=== PATIENT | female | born 1995 | race African-American/Black ===

== ENCOUNTER 2023-11-12 00:37 | Day surgery (SDC) | payer OTHER, SELFPAY ==
[2023-11-10 09:26] VITALS: BMI 21.5
--- NOTE | 2023-11-10 09:30 | PC.NURSE ---
Report to the Outpatient Waiting Room, entrance under the green pavilion located off [facility], at time 1300 on date 11/12/23. Planned Procedure Time: 1500. Time changes happen often and if your time is changed the preop area will call you the afternoon before. - You and your visitor will be asked to self-screen and do not enter if you have any COVID symptoms. - A mask is optional within the hospital at this time. Patients may have clear liquids (water, carbonated beverages, clear teas, apple juice) until 3 hours prior to surgery with a maximum of 20 ounces. - No food from midnight until time of surgery Take the following medications with a SIP of water the morning of surgery: NONE DO NOT STOP ANY OF YOUR OTHER PRESCRIPTION MEDICATIONS PRIOR TO SURGERY ?EXCEPT THE FOLLOWING Medications to discontinue per physician: ADVIL Date to take last dose: PER DR. WEST Please no make-up, nail swedish, hairspray, perfume, deodorant, or body powder the day of surgery. No jewelry (including any body piercings) or valuables the day of surgery, leave them at home. Please take a shower or bath the night before, or the morning of, surgery with an antibacterial soap. Wear comfortable, loose fitting clothing. - Jewelry must be removed prior to entering the operating room. Rings and piercings that are not removed may be cut off. - The hospital will not accept responsibility for valuables. - Please leave all valuables, including medications, at home the day of surgery. If you are going home after surgery, a licensed truck driver helper must drive you home. - NO public transportation without another adult if you receive anesthesia. - We recommend that an adult stay with you for 24 hours following discharge. - We also recommend that you do not drive, make important decision, drink alcoholic beverages, or take any drugs that were not prescribed by your health care provider for at least 24 hours after your discharge time. Follow any additional instructions given to you from your surgeon. If you or anyone in your household have experienced Covid symptoms in the past week, please notify your surgeon or the nurse liaison at the phone number below for possible testing. Telephone instructions given to PT - PHILLY RAWLS and asked if any additional questions and then verbalized understanding. Patient advised to call surgeon office or pre surgery nurse liaison [phone] if any additional questions.
[2023-11-12] MEDS: ACETAMINOPHEN 500 MG TABLET 1000 MG PO (14:00)
[2023-11-12] MEDS: LACTATED RINGERS 1,000 ML 30 ML IV CONT (14:00)
--- NOTE | 2023-11-12 14:12 | WPDANESEPPF ---
Anes - Initial Pre Proc Eval Procedure: Operation Date: 11/12/23 15:00 Proposed Procedures p Suction Dilation and Curettage - Andre Green MD Date/Time: 11/12/23 14:12 Surgeon: Andre Green MD Pre Op Diagnosis: Missed Ab Patient Data Age: 28 Gender: F Height: 1.57 m Weight: 53.52 kg Allergies Allergy/AdvReac Type Severity Reaction Status Date / Time No Known Allergies Allergy Verified 11/10/23 09:25 Home Medications Medication Instructions Recorded Confirmed Type ibuprofen 200 mg tablet (Advil) 600 mg PO Q6H PRN Pain 11/10/23 11/10/23 History Patient hx anesthesia problems: none Family hx anesthesia problems: none Results Review: All pre-operative results and documents have been reviewed as part of the pre-operative evaluation. [facility] Social History Social History Smoking status: Never smoker Tobacco type: cigarettes Smoking end date: 10/11/13 Additional smoking assessment comments: FORMER [employer] Alcohol intake: never Substance use: never Substance use type: does not use Living arrangements: with family Spiritual care concerns: No Anes - Eval Final PreProcedure Day of Procedure 11/12/23 14:12 Patient weight: normal Heart: regular rate and rhythm Lungs: clear to auscultation Airway: Mallampati scale class II Neurological: alert and oriented Last oral intake: >/= 8 hours ASA classification: II Emergent: no Anesthetic plan: proceed Anesthesia type and monitoring: general GIVS and standard monitoring Results Review: All pre-operative results and documents have been reviewed as part of the pre-operative evaluation. Informed Consent: The patient's anesthetic plan and its attendant risks and benefits were discussed with the patient/family/POA. Questions were solicited and answers provided to the satisfaction of the patient/family/POA.
[2023-11-12 14:32] VITALS: BP 114/75; PULSE 106; RESP 16; TEMP 37.1; O2SAT 98
--- NOTE | 2023-11-12 14:55 | PM.IMHP ---
H&P: HPI History of Present Illness Date/Time: 11/12/23 14:55 Chief Complaint: retained products of conception Narrative: Patient presented to the office with vaginal bleeding, s/p medical at 5 weeks gestation on 10/16. She had heavy bleeding for a few days following administration, however has continued to have light-moderate vaginal bleeding since that time. TVUS demonstrated heterogenous tissue, no clear gestational sac or embryo. Denies abdominal pain, fevers, or chills. Discussed low success rate of repeat cytotec vs D&C for removal of retained POC. After discussion of r/b/a of options, patient elects for D&C. Review of Systems Review of Systems: All systems reviewed & are unremarkable except as noted in HPI and below PMFSH Social History Social History Smoking status: Never smoker Tobacco type: cigarettes Smoking end date: 10/11/13 Additional smoking assessment comments: FORMER [employer] Alcohol intake: never Substance use: never Substance use type: does not use Living arrangements: with family Spiritual care concerns: No Meds Home Medications and Allergies Home Medications Medication Instructions Recorded Confirmed Type ibuprofen 200 mg tablet (Advil) 600 mg PO Q6H PRN Pain 11/10/23 11/12/23 History Allergies Allergy/AdvReac Type Severity Reaction Status Date / Time No Known Allergies Allergy Verified 11/12/23 14:29 Vital Signs Vital Signs - 24 hr 11/12/23 14:32 Temperature 98.7 F Pulse Rate 106 H Respiratory Rate 16 Blood Pressure 114/75 Pulse Oximetry 98 Oxygen Delivery Room Air Exam Const: General: comfortable and no acute distress HENMT: Mouth: Yes moist mucous membranes Eyes: General: appearance normal, both eyes and all related structures Resp: Effort & Inspection: normal respiratory effort Cardio: Rate: regular rate Rhythm: regular rhythm Skin: General skin exam: normal color Extrem: General: normal to inspection Psych: Mental Status: mental status grossly normal Assessment and Plan Assessment and plan (1) Retained products of conception: Status: Acute Assessment and Plan: s/p cytotec on 10/16, continued vaginal bleeding since that time TVUS in office demonstrates retained products of conception r/b/a of repeat cytotec vs D&C discussed with patient, who elects for D&C Will proceed with suction D&C
--- NOTE | 2023-11-12 14:59 | WPDHPUPDATE1 ---
History and Physical Update Update Date/Time: 11/12/23 14:59 History and Physical has been reviewed, including an updated exam of the patient. There are NO changes in the patient's condition. Risks, benefits, and alternatives have been discussed and questions answered. Patient agrees to proceed with procedure.
[2023-11-12] MEDS: LIDOCAINE HCL 1% LOCAL INJ 10 ML VIAL INFILTRATE (15:14)
[2023-11-12 15:30] VITALS: BP 90/44; PULSE 79; RESP 14; O2SAT 100
--- NOTE | 2023-11-12 15:32 | W.PM.PROC2 ---
Procedure Note - Detailed Date of Procedure 11/12/23 Pre-op Diagnosis Missed Ab Post-op Diagnosis Same Procedure Performed suction D&C Surgeon Andre Green MD Anesthesia MAC Indications Retained products of conception s/p cytotec Findings Moderate vaginal bleeding, moderate amount of blood and tissue removed from uterus, minimal bleeding following procedure Description of Procedure The patient was then taken to the operating room with IVFs running. She was placed in the dorsal supine position where she received MAC anesthesia without any difficulty. The patient was placed in the dorsal lithotomy position using aziza stirrups. EUA revealed the above findings. She was then prepped and draped in a normal sterile fashion. A time-out procedure was performed and all members of the OR team agreed on the patient and plan. A bivalved speculum was then inserted into the patient's vagina. The anterior lip of the cervix was grasped with a single tooth tenaculum. The cervical os was dilated using matt dilators to accommodate a 7mm rigid curette. The suction curette was tested outside the patient and found to be working properly. The curette was then advanced into the intrauterine cavity and circumferentially removed. All products of conception were removed until little tissue was seen passing through the tubing. The specimen was sent to pathology. The single tooth tenaculum was removed from the anterior lip of the cervix. The bivalve speculum was removed. The patient tolerated the procedure well. Sponge, lap, needle, and instrument counts were correct X3. The patient was awakened from anesthesia and taken to the recovery room in stable condition. Estimated Blood Loss 50 Pathology Yes Complications No immediate complications Condition Stable Disposition Same day
[2023-11-12 16:00] VITALS: BP 107/67; PULSE 74; RESP 16; O2SAT 100
[2023-11-12 16:30] VITALS: BP 117/70; PULSE 69; RESP 16
[2023-11-12] MEDS: DOXYCYCLINE HYCLATE 100 MG TABLET PO (16:43)
[2023-11-12] MEDS: oxyCODONE HCL (*CRX) 5 MG TAB IR PO (16:51)
--- NOTE | 2023-11-12 16:56 | SUR.OPER ---
specimen ordered after procedure was finished by FAIZA Pittman
--- NOTE | 2023-11-12 17:08 | SUR.PHASEII ---
[facility] CALLED TO ASK FOR 4 PINK TOP BLOOD SAMPLES TO DETERMINE WHAT KIND OF ANTIBODIES ARE IN HER BLOOD SHOWN IN T & S. AYESHA CALLED TO ASK WHETHER THIS IS NECESSARY AND SHE SAID TO DO THE LAB DRAW. PATIENT AND SIGNIFICANT OTHER ARE CONCERNED ABOUT MORE BLOOD DRAWS DUE TO HER RECENT VAGINAL BLEEDING. PATIENT AND S.O. ARE DISCUSSING BETWEEN THEMSELVES.
--- NOTE | 2023-11-12 17:29 | SUR.PHASEII ---
4 PINK TUBES SENT TO LAB. PATIENT TOLERATED VENIPUNCTURE WELL.
== END 2023-11-12 17:34 | disposition home or self-care (01) ==
PROVIDERS: PCP Nurse Practitioner Family; Visit Provider Obstetrics & Gynecology
PROC: (CPT 59820; principal; 2023-11-12 15:00)
DX: O02.1 Missed abortion (principal)
CPT/HCPCS: 59820; 36415; 85461; 86850; 86870; 86880; 86900; 86901; 86902; 86971; 88305; A9270; J2250; J2405; J2704; J7120